=== PATIENT | male | born 1985 | race Caucasian/White ===

== ENCOUNTER → 2017-01-04 | Outpatient (CLI) | payer OTHER | LOC: FLAB 17:15 → EDSTATUS 17:16 → FIMAGING 17:17 | PROVIDERS: ATTEND Family Medicine | DX: S62.314A Displaced fracture of base of fourth metacarpal bone, right hand, initial encounter for closed fracture (principal) ==

== ENCOUNTER → 2017-01-14 | Outpatient (CLI) | payer OTHER | LOC: FLAB 16:53 | PROVIDERS: ATTEND Family Medicine | DX: S92.412A Displaced fracture of proximal phalanx of left great toe, initial encounter for closed fracture (principal) ==